=== PATIENT | female | born 1935 | race Caucasian/White ===

== ENCOUNTER → 2018-06-25 | Outpatient (CLI) | payer MEDICARE ==
[~2018-06-25] MED LIST: METO25TA35 PO; REGADENOSON 0.4 MG/5 ML SYRINGE ONE
== END | disposition home or self-care (01) ==
LOC: CFH 08:30
PROVIDERS: ATTEND Internal Medicine Cardiovascular Disease
DX: Z01.810 Encounter for preprocedural cardiovascular examination (principal); R94.31 Abnormal electrocardiogram [ECG] [EKG]; I25.2 Old myocardial infarction
CPT/HCPCS: 78452; 93017; A9502; J2785

== ENCOUNTER → 2019-11-19 | Outpatient (CLI) | payer MEDICARE ==
[~2019-11-19] MED LIST changes: +OMNIPAQUE 350 MG/ML, 100ML BOTTLE ONE; -REGADENOSON 0.4 MG/5 ML SYRINGE ONE
== END | disposition home or self-care (01) ==
LOC: CFH 09:30
PROVIDERS: ATTEND Nurse Practitioner Family
DX: K76.0 Fatty (change of) liver, not elsewhere classified (principal); K75.3 Granulomatous hepatitis, not elsewhere classified; K57.30 Diverticulosis of large intestine without perforation or abscess without bleeding; I25.10 Atherosclerotic heart disease of native coronary artery without angina pectoris; K76.89 Other specified diseases of liver; I70.0 Atherosclerosis of aorta
CPT/HCPCS: 74177; Q9967